=== PATIENT | male | born 1935 | race Caucasian/White ===

== ENCOUNTER 2018-04-02 00:56 | Inpatient (IN) | payer MEDICARE ==
[~2018-04-02] VITALS: Ht 177.8 cm; Wt 84.8 kg
[2018-04-02] MEDS ORDERED: PARO20TA4 PO (01:39)
[2018-04-02 01:45] VITALS: BP 128/79
--- NOTE | 2018-04-02 01:45 | NUR ---
ADMIT Patient arrived per wheelchair with 3 Family members and [place] [employer] officer Tania . Pt involuntary and has commital papers.Patient alert and talking with family and staff members. Patients memory recall poor and has repeated himself numerous times. Patient happy until family left and he became upset and was exit seeking and wandering room to room and to doors trying to get out. Security notified and here to observe patient . Patient asking numerous times to go outside and sit on porch and to call cab to get home. Numerous explanations to patient from staff members but is not remembered by patient. To observe closely for patient.
[2018-04-02] MEDS ORDERED: ATIVAN IM PRN (06:30)
[2018-04-02] MEDS ORDERED: HALDOL PO PRN (06:30)
[2018-04-02] MEDS ORDERED: ATIVAN PO PRN (06:30)
[2018-04-02] MEDS ORDERED: HALDOL IM PRN (06:30)
[2018-04-02 07:50] VITALS: BP 144/80
[2018-04-02] MEDS: PAXIL PO SCH (10:31)
[2018-04-02] MEDS: RISPERDAL PO SCH ×2 (10:31→21:15)
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
--- NOTE | 2018-04-02 15:11 | NUR ---
GMAS SCORE 0/30: PT REFUSES TO PARTICIPATE AT THIS TIME. PT WILL NOT SIT DOWN, AND IS FIXATED ON CALLING HIS FAMILY AND GOING HOME. SS WILL REATTEMPT LATER IF PT BECOMES MORE ALERT AND IS ABLE TO PARTICIPATE. Addendum: 04/02/18 at 1641 by Gretta RODRIGUES Amended: Links added.
--- NOTE | 2018-04-02 16:06 | NUR ---
MMSE SCORE 0: PT UNABLE TO ANSWER ANY QUESTIONS THIS WORKER HAD. PT REFUSED TO SIT DOWN LONG ENOUGH TO ANSWER ANY QUESTIONS THIS WORKER HAD. PT REMAINS FIXATED ON LEAVING/CALLING HIS AT THIS TIME. Addendum: 04/02/18 at 1708 by Gretta RODRIGUES Amended: Links added.
--- NOTE | 2018-04-02 16:45 | NUR ---
SYMPTOMATOLOGY: PT WAS BROUGHT IN TO THE [facility]. PT WAS LIVING HOME WITH HIS AND WAS SIGNED UP WITH [facility]. [facility]ALLE[facility] STATED "WE ADMITTED HIM ON MARCH 18, 2018 AND I WAS THE NURSE WHO ADMITTED HIM AND I WAS AT HIS HOUSE AN HOUR/HOUR AND HALF AND HE HAD NO BEHAVIORS. THIS HAS JUST GOTTEN PROGRESSIVELY WORSE THE LAST WEEK". PT HAS HAD A CHANGE IN HIS MENTAL STATUS, HAS BECOME VIOLENT, IRRITABLE, PHYSICALLY AGGRESSIVE TOWARDS HIS . PT WAS MAKING SUICIDAL STATEMENTS SUCH HE WAS GOING TO HANG HIMSELF OR TAKE A 22 TO HIS HEAD. DUE TO PT BEING A DANGER TO HIMSELF AND OTHERS PT WAS BROUGHT HER BY FAMILY AND [facility] FOR FURTHER EVALUATION AND TREATMENT. SS WILL FOLLOW AND ASSIST WITH DISCHARGE PLANNING. Addendum: 04/02/18 at 1707 by Gretta RODRIGUES Amended: Links added.
--- NOTE | 2018-04-02 17:41 | NUR ---
PIRP P: Altered thought process, alteration in mood I: q15 min monitoring, monitor for changes in usual behavior, give clear and simple instructions, redirect with verbalization, assess for hallucinations and delusions, assist with differentiating between internal and external reality, teach relaxation techniques, provide task-oriented activities, provide 1:1 to encourage expression of feelings, teach medication regimen, give medications as ordered, provide safe and supportive environment R: Pt has had labile affect throughout shift, pleasant majority of time. Has been able to be redirected with verbalization. Makes threats to leave facility @ times, states, "They can shoot me or kill me, but I'm leaving today. If I get too emotional, I will hurt someone." When asked why he was in facility, pt stated, "I'm here because of stupidity. I went to the doctor in [place] and told ehr I was having trouble using the bathroom. It wasn't that, it was the peaches I ate." Alert and oriented to self, sometimes to town. Able to follow simple directions, has taken medications as ordered. Is exit-seeking @ times, but is able to redirect. Wanders up and down aguilar, has participated in some group activities with prompting and direction. Denies having had hallucinations, but has pulled staff aside to look @ ceiling because of "water falling from ceiling," that was not there. Exhibits varying delusions, has been able to redirect. Has had poor appetite and has not slept since admit in early A.M. P: Pt was started on Risperdal, Trazodone, and continued on Paxil, see EMAR.
[2018-04-02 19:56] VITALS: BP 128/82
--- NOTE | 2018-04-02 20:45 | NUR ---
HYGIENE PT. WAS ENCOURAGED TO TAKE A SHOWER BUT HE REFUSED.
[2018-04-02] MEDS: DESYREL PO SCH (21:15)
[2018-04-02 22:16] VITALS: BP 120/80
--- NOTE | 2018-04-03 05:09 | NUR ---
PIRP- P- ALTERED THOUGHT PROCESS AND ALTERATION IN MOOD I-PROVIDE SAFE AND SUPPORTIVE ENVIRONMENT,Q 15 MIN. MONITORING,PROVIDE MEDICATION ORDERED AND PROVIDE 1:1 INTERVENTION ALLOWING PT. TO VOICE THOUGHTS AND FEELINGS R- PT. WAS ORIENTED TO NAME NOT MONTH OR YEAR. DENIES DEPRESSION ,RATED ANXIETY 5 AND STATES WHEN ASKED THAT HE WOULD NOT KILL HIMSELF THAT HE WAS JUST TALKING BUT DID NOT MEAN HE WOULD KILL HIMSELF. PT. STATED THERE WAS WATER COMING OUT OF THE CEILING. ATTEMPTED TO GO BEHIND NURSES DESK BUT WAS EASILY REDIRECTED. TOOK MEDICATION ORDERED. 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 PT. WALKED AROUND IN UNIT TRYING TO GET THE DOORS OPEN SAYING HE HAD A TRUCK OUTSIDE AND HE NEEDED TO GO HOME. PT. HAS RESTED IN BED WITH EYES CLOSED FOR 7 1/2 HOURS OF THIS TIME TONIGHT. P- CONTINUE WITH CURRENT TX. PLAN.
[2018-04-03 07:30] VITALS: BP 113/66
[2018-04-03] MEDS: RISPERDAL PO SCH ×2 (08:56→19:52)
[2018-04-03] MEDS: PAXIL PO SCH (08:56)
--- NOTE | 2018-04-03 09:01 | NUR ---
Admit note: In addition to admit note on 04/02/18. Patient's family would like patient to be discharge back home but if unable to be managed at home group home placement. Dx: Delusional Disorder, Suicidal Ideation.
--- NOTE | 2018-04-03 10:57 | NUR ---
PRN: PT. IS VERY ANXIOUS. PT. IS WANDERING THE AMADOR GOING INTO OTHER PT. ROOMS. PT. IS WANTING TO GO HOME. PT. GETS FRUSTRATED WHEN HE TALKS TO NURSE. PT. THINKS HE HAS A CAR IN THE PARKING LOT AND THAT HE NEEDS TO LEAVE TO GO TO WORK. PT.IS UNABLE TO BE REDIRECTED AT THIS TIME. PRN: ATIVAN 0.5MG PO GIVEN TO PT..
--- NOTE | 2018-04-03 12:10 | NUR ---
F/U PRN: PT. HAS BEEN LAYING IN BED WITH EYES CLOSED. PT. STATES THAT HE IS NOT HUNGRY. TOLD PT. WE WERE HAVING CHICKEN AND HE SAID OK. I TOLD HIM TO COME TO DAY ROOM AND HE SAID OK. PT. IS UP TO BR. PT..IS CALM AT THIS TIME.
--- NOTE | 2018-04-03 17:07 | NUR ---
PIRP: P: ALTERED THOUGHT PROCESS, DEMENTIA WITH BEHAVIOR PROBLEMS, DTS, DTO I: Provide medications as ordered by physician. Encourage attendance and participation of all groups. Provide groups that require focus and concentration. Monitor patients behavior for changes that may put self and others at risk of injury. Redirect patients as needed. Give simple one step commands. R: Patient has taken all medications as ordered . He has wandered and has been restless. He forgets what room is his and wanders in to others rooms. He has required a PRN Ativan this shift for restless behavior and mild agitation about wanting to call his . He has poor memory. He has NOT been combative towards staff or other patients this shift. He has not participated in groups today. He has been pleasant. He has not been exit seeking. P: Continue current plan of care.
--- NOTE | 2018-04-03 18:23 | CNH ---
DATE OF CONSULTATION: 04/02/2018 REFERRING PHYSICIAN: Dr. Pappas with Psychiatry. REASON FOR CONSULTATION: Medical management of multiple medical problems. HISTORY OF PRESENT ILLNESS: The patient is an 82-year-old man with a past medical history significant for coronary artery disease, dementia, chronic back pain, who presented to the Geropsych unit directly from [facility] with the report of aggressive and combative behavior. He is cooperative with exam ambulatory. He denies any pain or nausea. There is no other acute changes reported. PAST MEDICAL HISTORY: Includes coronary artery disease, probable dementia. PAST SURGICAL HISTORY: He has had left hip surgery. Two knee surgeries. PTCA with stents placed. ALLERGIES: Allergic to TETANUS TOXOID. HOME MEDICATIONS: List includes only Paxil 20 mg daily. SOCIAL HISTORY: Lives at home. Denies any alcohol, tobacco or illicit drug use history. FAMILY HISTORY: Negative for early coronary artery disease or diabetes. REVIEW OF SYSTEMS: CARDIAC: Denies chest pain, shortness of breath or dyspnea on exertion. PULMONARY: No cough, sputum production or pleuritic chest pain. GASTROINTESTINAL: No nausea, vomiting, diarrhea or constipation. All else negative in 10-point review of system except as in HPI. PHYSICAL EXAMINATION: VITAL SIGNS: Upon arrival to the unit, height 177.8 cm, weight 84.8 kilograms. Temperature is 97.6, pulse 77, respiratory rate 18, blood pressure 144/80, O2 saturation 92% on room air. GENERAL: He is alert, in no acute distress at time of exam. HEENT: Pupils equal, round, reactive to light. Sclerae are anicteric. Oropharynx is clear. Mucous membranes are moist. NECK: Supple. No lymphadenopathy. CARDIOVASCULAR: At time of exam was regular rate and rhythm. LUNGS: Clear bilaterally. No wheezing. ABDOMEN: Soft. Bowel sounds are present, nontender to palpation. EXTREMITIES: No cyanosis, clubbing or edema. NEUROLOGIC: Grossly nonfocal. LABORATORY DATA: Sodium 142, potassium 4.2, chloride 103, CO2 is 21, BUN 14, creatinine 0.9, glucose 146, calcium was 10.3, AST 25, ALT is less than 20, alkaline phosphatase 103, total bilirubin 0.7, total protein 7.1, albumin is 4.4. TSH 0.907. B12 of 507. UA, pH is 5.5, specific gravity is greater than 1.03. All else is essentially negative. Urine drug screen is positive only for benzodiazepines. Troponin I is less than 0.12. ProBNP is 43.8. Hemoglobin A1c is 5.5. CBC: White count 6.4, hemoglobin 14.6, platelets 178. IMAGING STUDIES: He has CT of the head performed at outside house with no acute findings. ASSESSMENT AND PLAN: The patient is an 82-year-old gentleman with history of coronary artery disease, probable dementia with aggressive behavior. 1. He is currently not on any cardiovascular medications. We will follow clinically. 2. Appropriate p.r.n. pain and nausea medication. 3. Encourage ambulation. 4. We will follow up with lipid panel, but he is not on any medications except for Paxil. We will follow clinically. Time spent on consult history and physical on 04/02/2018 is 45 minutes. Nadir Yeh MD DR: MARIS/teresa JOB# [id number] KEISHA
[2018-04-03] MEDS: DESYREL PO SCH (19:52)
[2018-04-03 20:00] VITALS: BP 130/68
--- NOTE | 2018-04-04 05:06 | NUR ---
pirp- P-ALTERED THOUGHT PROCESS, DTO AND DTS I- PROVIDE MEDICATION ORDERED,Q 15 MIN. MONITORING,PROVIDE SAFE AND SUPPORTIVE ENVIRONMENT R- PT. WAS ORIENTED TO NAME NOT MONTH OR YEAR. DENIED DEPRESSION AND ANXIETY. DECLINED TO ATTEND GROUP OR EAT A SNACK AND STAYED IN BED. QUIET. HAS NOT EXHIBITED DTO OR DTS THIS SHIFT. PLEASANT AFFECT. TOOK MEDICATION ORDERED. HAS RESTED IN BED WITH EYES CLOSED FOR 7 HOURS OF THIS TIME. P- WILL CONTINUE WITH CURRENT TX. PLAN.
[2018-04-04 07:30] VITALS: BP 119/73
[2018-04-04] MEDS: RISPERDAL PO SCH ×2 (09:00→20:42)
[2018-04-04] MEDS: PAXIL PO SCH (09:00)
--- NOTE | 2018-04-04 09:48 | PRM.PN ---
Mood: UP AND DOWN, PROBLEMS WITH ANGER AND IRRITABILITY Sleep: SLEEPING WELL AT NIGHT Appetite: NORMAL APPETITE Suidical thoughts: NONE REPORTED Homicidal thoughts: NONE REPORTED Recent stressors: STRESS OF MENTAL ILLNESS, STRESS OF POOR MEMORY Family support: YES Aggressive Behavior: RECENT AGGRESSIVE BEHAVIOR, PACES THE HALLWAYS Ability to Perform ADL'sc: NEEDS ASSISTANCE Psychotic sympstoms: DELUSIONAL THINKING RELATED TO DEMENTIA, NO HALLUCINATIONS Manic Symptoms: NONE REPORTED Living situation: WAS LIVING AT HOME WITH HIS Illicit Drug usec: NONE REPORTED Alcoholo use: NONE REPORTED Tobacco use: NONE REPORTED Anxity Symptoms: MODERATE TO HIGH ANXIETY LEVEL Anger/Irritablility: PROBLEMS WITH ANGER AND IRRITABILITY Muscle Strength & Tone: WNL Gait & Station: WN Appearance: Well groomed/hygience, Casual attire, Normal weight, Appears age stated Attitude & Behaviour: Uncooperative, Poor eye contact, Hostile, Psychomotor agitation Mood & Affect: Euthymic/appr/congruent, Iabile, Angry, Depressed Orientation: Disoriented to place, Disoriented to time, Disoriented to situation Attention/Concentration: Poor attention, Poor concentration Speech: Pressured, Impaired Judgement/Insight: Poor judgement, Poor insight Thought Process: Loose, Tangential, Circumferential Language: Occitan Thought content/Abnormal/Psych: Delusions Fund of Knowledge: Other Associations: ANDRIY Memory (recent and remote): Recent memory repaired, Remote memory repaired Constitutional: None Neurological: None Psychiatric: Depressed, Anxious, Psychosis [place] I: DELUSIONAL DISORDER; GENERALIZED ANXIETY, DEPRESSION, DEMENTIA [place] II: DEFERRED [place] III: REFER TO PMH/MEDICAL CHART [place] IV: STRESS OF MENTAL ILLNES, STRESS OF POOR MEMORY [place] V: GAF=25 Assessment/Plan Assessment/Plan Assessment/Plan Vital Signs Date Time Temp Pulse Resp B/P (MAP) Pulse Ox O2 Delivery O2 Flow Rate FiO2 04/04/18 07:30 98.6 83 18 119/73 (88) 97 Room Air Allergies Coded Allergies Tetanus Vaccines and Toxoid (Verified Allergy, Unknown, 04/02/18) I & O 04/02/18 02:05 Thru 04/04/18 05:13 Intake Total 2067 ml Balance 2067 ml THE PATIENT WAS SEEN BY DR. BANG VIA TELEMEDICINE EQUIPMENT (VSEE) ALONG WITH THE TREATMENT TEAM. THE PATIENT SLEPT 8 HOURS LAST NIGHT. THE PATIENT REQUIRED PRN ATIVAN YESTERDAY DUE TO ANXIETY, AGGRESSIVE BEHAVIOR, AND IRRITABILITY. THE PATIENT HAS BEEN TAKING HIS MEDICATIONS. THE PATIENT HAS A NORMAL APPETITE. THE PATIENT STRUGGLES WITH CONFUSION. THE PATIENT NEEDS HELP WITH HIS ADLS. THE PATIENT IS NOT HAVING AUDITORY OR VISUAL HALLUCINATIONS. THE PATIENT IS NOT HAVING YOLANDE. THE PATIENT HAS A MODERATE TO HIGH ANXIETY LEVEL. THE PATIENT HAS LOOSE ASSOCIATIONS. ASSESSMENT: DELUSIONAL DISORDER; MAJOR DEPRESSIVE DISORDER; GENERALIZED ANXIETY ; DEMENTIA WITH BEHAVIOR PROBLEMS PLAN: 1) CONTINUE BEHAVIORAL HEALTH MANAGEMENT AT [facility]. 2) INCREASE RISPERDAL TO 0.5MG PO BID. CONTINUE OTHER MEDICATIONS AT CURRENT DOSES. STAFF AGREEABLE WITH THE PLAN. THE PATIENT IS NOT OVER-SEDATED FROM HIS MEDICATIONS. SUPPORTIVE THERAPY GIVEN. THE PATIENT DENIES SI OR HI. SAFETY PLANS WERE DISCUSSED. Problems: (1) Delusional disorder Status: Acute ICD Code: F22 - Delusional disorders SNOMED: [id number] Patient History: Diabetes mellitus V19 CHILD FH: brain tumor G8 SISTER FH: colon cancer 32 MOTHER 33 FATHER FH: malignant neoplasm of kidney G8 BROTHER RACHANA BANG IV, MD Apr 04, 2018 09:48
--- NOTE | 2018-04-04 16:51 | NUR ---
PIRP: P: ALTERED THOUGHT PROCESS, DEMENTIA I: Provide medications as ordered by physician. Encourage attendance and participation of all groups. Provide groups that require focus and concentration. Assist patient in differentiating between internal and external reality. R: Patient has taken all medications and has been wandering hallway wandering in and out of others rooms. He is confused and disoriented. he has not been combative or aggressive this shift. He continues to think that things have been stolen from him. He is eating and drinking well. He has been cooperative but continues to state "I am going home tomorrow". P: Continue current plan of care.
[2018-04-04 19:30] VITALS: BP 123/53
[2018-04-04] MEDS: DESYREL PO SCH (20:42)
--- NOTE | 2018-04-05 04:50 | NUR ---
pirp P- DTO,DTS AND ALTERED THOUGHT PROCESS I- PROVIDE MEDICATION ORDERED,PROVIDE SAFE AND SUPPORTIVE ENVIRONMENT,Q 15 MIN. MONITORING R- PT. WAS ORIENTED TO NAME,DENIES DEPRESSION AND ANXIETY. ATTENDED GROUP ,ATE SNACKS AND WANDERED IN DAY ROOM, LOOKING OUT THE WINDOW SAYING THAT PIPE OUT THERE ON THE ROOF IS THE ONE HE JUST HAD THE DEFENSE ATTORNEY LAY. HE MADE STATEMENTS IF HE WAS STILL WORKING. TOOK MEDICATION ORDERED. WANDERED IN THE HALLWAY AT TIME AND ATTEMPTED TO GO INTO PEERS' ROOMS . PT. GOT UP DURING THE NIGHT,DRESSED AND STATED HE WAS GOING HOME. DID NOT EXHIBIT AGGRESSION OR DTS. HAS RESTED IN BED WITH EYES CLOSED FOR 5.50 HOURS OF THIS TIME. P- WILL CONTINUE WITH CURRENT TX. PLAN.
[2018-04-05 08:09] VITALS: BP 124/54
[2018-04-05 08:43] VITALS: BP 124/54
[2018-04-05] MEDS: RISPERDAL PO SCH ×2 (08:54→20:07)
[2018-04-05] MEDS: PAXIL PO SCH (08:55)
--- NOTE | 2018-04-05 17:18 | NUR ---
PIRP: P: ALTERED THOUGHT PROCESS I: Provide medications as ordered by physician. Encourage attendance and participation of all groups. Provide groups that require focus and concentration. Assist patient in differentiating between internal and external reality. Monitor patients behavior for changes that may indicate risk of injury to others. R: Patient has taken all medications and has participated in groups. He wanders and has gone into other peoples rooms forgetting where his room is. He has been exit seeking "asking for ways to get off unit" but has been easily redirected. He has not been combative or aggressive. C: Continue current plan of care.
[2018-04-05 19:29] VITALS: BP 127/66
[2018-04-05] MEDS: DESYREL PO SCH (20:07)
--- NOTE | 2018-04-06 03:11 | NUR ---
PIRP- P- ALTERED THOUGHT PROCESS I-PROVIDE SAFE AND SUPPORTIVE ENVIRONMENT,Q 15 MIN. MONITORING,PROVIDE MEDICATION ORDERED. R- PT.TOOK MEDICATION ORDERED,ORIENTED TO NAME AND STATED HE WAS NOT SAD,DEPRESSED OR ANXIOUS BUT PT. WAS WANDERING IN HALLWAY AND DAY ROOM TRYING TO OPEN THE DOORS SAYING HE NEEDS TO GO HOME. EASILY REDIRECTED. PLEASANT AFFECT. PT. ATE SNACKS AND PARTICIPATED IN EXERCISES. HAS NOT BEEN AGGRESSIVE THIS SHIFT. IS RESTING IN BED WITH EYES CLOSED AT THIS TIME. P- WILL CONTINUE WITH CURRENT TX. PLAN.
--- NOTE | 2018-04-06 05:38 | NUR ---
behaviors Pt. was exhibited delusional thinking while sitting in day room.
[2018-04-06 07:20] VITALS: BP 101/66
[2018-04-06] MEDS: PAXIL PO SCH (09:02)
[2018-04-06] MEDS: RISPERDAL PO SCH ×2 (09:02→20:25)
--- NOTE | 2018-04-06 13:31 | NUR ---
VSEE Pt was seen by Dr. Pappas via telemed, received orders to increase scheduled Trazodone.
--- NOTE | 2018-04-06 13:33 | PRM.PN ---
Mood: UP AND DOWN, VERY CONFUSED Sleep: SLEEPING POORLY AT NIGHT Appetite: NORMAL APPETITE Suidical thoughts: NONE REPORTED Homicidal thoughts: NONE REPORTED Recent stressors: STRESS OF MENTAL ILLNESS, SEVERE CONFUSION Family support: AND FAMILY Aggressive Behavior: NONE REPORTED OVER THE PAST THREE DAYS, AGGRESSIVE AT HOME TO Ability to Perform ADL'sc: NEEDS PROMPTING AND ASSISTANCE Psychotic sympstoms: DELUSIONAL THINKING RELATED TO DEMENTIA Manic Symptoms: NONE REPORTED Living situation: WAS LIVING AT HOME, NEEDS ASSISTED CARE Illicit Drug usec: NONE REPORTED Alcoholo use: NONE REPORTED Tobacco use: NONE REPORTED Anxity Symptoms: MODERATE ANXIETY LEVEL Anger/Irritablility: SOME ANGER AND IRRITABILITY Muscle Strength & Tone: WNL Gait & Station: Ataxic Appearance: Well groomed/hygience, Casual attire, Normal weight, Appears age stated Attitude & Behaviour: Cooperative/Pleasant, Good eye contact Mood & Affect: Euthymic/appr/congruent, Iabile Orientation: Disoriented to place, Disoriented to time, Disoriented to situation Attention/Concentration: Poor attention, Poor concentration Speech: Reg rate/vol/rhyth/prosod Judgement/Insight: Poor judgement, Poor insight Thought Process: Loose, Tangential, Circumferential Language: Faroese Thought content/Abnormal/Psych: Delusions Fund of Knowledge: Other Associations: ANDRIY Memory (recent and remote): Recent memory repaired, Remote memory repaired Constitutional: Insomnia Neurological: None Psychiatric: Depressed, Anxious, Psychosis [place] I: DELUSIONAL DISORDER; DEPRESSION; ANXIETY; DEMENTIA WITH BEHAVIORS [place] II: DEFERRED [place] III: REFER TO PMH/MEDICAL CHART [place] IV: STRESS OF MENTLA ILLNESS [place] V: GAF=25 Assessment/Plan Assessment/Plan Assessment/Plan Vital Signs Date Time Temp Pulse Resp B/P (MAP) Pulse Ox O2 Delivery O2 Flow Rate FiO2 04/06/18 07:20 98.1 77 18 101/66 (78 95 Room Air Allergies Coded Allergies Tetanus Vaccines and Toxoid (Verified Allergy, Unknown, 04/02/18) I & O 04/02/18 02:05 Thru 04/06/18 11:35 Intake Total 5254 ml Balance 5254 ml THE PATIENT WAS SEEN BY DR. BANG VIA TELEMEDICINE EQUIPMENT (VSEE) ALONG WITH THE TREATMENT TEAM. THE PATIENT REQUIRES CONSTANT REDIRECTION. THE PATIENT IS ORIENTED TO PERSON ONLY. THE PATIENT SLEPT 3.25 HOURS LAST NIGHT. THE PATIENT SLEPT 6.25 HOURS THE NIGHT BEFORE. THE PATIENT HAS A NORMAL APPETITE. THE PATIENT HAS BEEN DRINKING FLUIDS. HE HAS NOT HAD A PRN IN THE PAST THREE DAYS. THE PATIENT HAS DELUSIONAL THINKING. THE PATIENT IS NOT HAVING HALLUCINATIONS. THE PATIENT HAS SOME EXIT SEEKING BEHAVIOR. THE PATIENT HAS NOT SHOWN AGGRESSIVE BEHAVIOR IN THE PAST THREE DAYS. THE PATIENT'S FAMILY PARTICIPATED IN TREATMENT TEAM TODAY. THE PATIENT HAS A STABLE ANXIETY LEVEL. THE PATIENT IS NOT HAVING MANIC OR HYPOMANIC SYMPTOMS. THE PATIENT IS NOT HAVING SUICIDAL OR HOMICIDAL IDEATION. THE PATIENT HAS A DISORGANIZED THOUGHT PROCESS. THE PATIENT WORKED A [employer]ARD[employer] IN THE PAST. ASSESSMENT: DELUSIONAL DISORDER; GENERALIZED ANXIETY DISORDER; DEMENTIA WITH BEHAVIOR PROBLEMS; MAJOR DEPRESSIVE DISORDER PLAN: 1) CONTINUE BEHAVIORAL HEALTH MANAGEMENT AT [facility]. 2) INCREASE TRAZODONE TO 100MG PO QHS. CONTINUE OTHER MEDICATIONS AT CURRENT DOSES. THE STAFF WERE AGREEABLE WITH THE PLAN. 16 MINUTES SPENT IN SUPPORTIVE THERAPY AND INSIGHT ORIENTED THERAPY. FAMILY COUNSELING DONE WELL. Problems: (1) Delusional disorder Status: Acute ICD Code: F22 - Delusional disorders SNOMED: [id number] Patient History: Diabetes mellitus V19 CHILD FH: brain tumor G8 SISTER FH: colon cancer 32 MOTHER 33 FATHER FH: malignant neoplasm of kidney G8 BROTHER RACHANA BANG IV, MD Apr 06, 2018 13:33
--- NOTE | 2018-04-06 16:30 | NUR ---
PIRP P: Altered thought process I: q15 min monitoring, redirect with verbalization, give clear and simple instructions, provide task-oriented activities, provide 1:1 to encourage expression of feelings, give medications as ordered, provide education regarding involuntary admission, teach coping skills r/t confusion and delusional thoughts R: Pt has had pleasant affect throughout shift. Is exit-seeking @ times, wanders aguilar, but is able to be redirected with verbalization. Has not exhibited threatening or combative behaviors throughout shift. Denies feelings of depression or anxiety. Exhibits varying delusions, such as his pickup being outside, or him needing to go to take his pickup back to [place]. Has not required any PRN medications this shift, has been cooperative with ADLs. Participates in group activities with prompting. P: Pt's Trazodone was increased.
[2018-04-06 19:00] VITALS: BP 134/73
[2018-04-06] MEDS: DESYREL PO SCH (20:25)
--- NOTE | 2018-04-07 05:00 | NUR ---
PIRP P Dementia with behaviors. DTS. DTO. Risk for falls I Encourage patient to sleep 8 ours nightly. Medication compliance to be maintained. Allow patient to verbalize thought and feelings. Patient to be monitored every 15 minutes for safety. Patient not to exhibit self harm behaviors. R Patient has slept 6.25 hours so far this evening. Patient has been medication compliant. Patient does not want to talk about anything but getting out of here and where is his . Patient has not displayed any self harming behaviors. P Continue plan of care.
[2018-04-07 07:40] VITALS: BP 139/59
[2018-04-07] MEDS: PAXIL PO SCH (08:56)
[2018-04-07] MEDS: RISPERDAL PO SCH ×2 (08:57→20:44)
--- NOTE | 2018-04-07 17:18 | NUR ---
PIRP P: Altered thought process I: Monitor for changes in usual behavior, q15 min monitoring, assess for hallucinations and delusions, assist with differentiating between internal and external reality, give medications as ordered, encourage participation in own self-care R: Pt has had pleasant, cooperative affect throughout shift. Denies depression, anxiety, SI/HI. Has not been exit-seeking or exhibited threatening or combative behaviors. Has isolated to room, but will come out for meals and ADLs. Has taken medications as ordered. P: Pt unable to verbalize plan, plans for [facility] to [facility] once placement is found.
[2018-04-07 19:30] VITALS: BP 113/62
[2018-04-07] MEDS: DESYREL PO SCH (20:45)
--- NOTE | 2018-04-08 04:23 | NUR ---
PIRP p Dementia with behaviors. DTS ,DTO, Risk for falls I Observe for exit seeking and assaultive behavior. Observe for self harming behavior. Encourage patient to attend groups and interact with peers. Monitor every 15 minutes for safety. Observe for unusual behavior. Discourage acting out if observed. Observe proper use of fall prevention. R Patient has not been exit seeking this evening or early am at all. Patient came in hallway once and then walked back into his room. Did not attempt to pull or push on doors or windows as he has in previous days. Patient has not displayed any self harming behaviors or behaviors to harm anyone else. Patient did not come to have a snack last pm, he wanted to sleep at the time. Patient has been monitored every 15 minutes for safety and has not displayed any unusual behaviors or acting out either.Patient has worn non skid footwear when up and out of bed. P continue plan of care.
[2018-04-08 07:44] VITALS: BP 124/65
--- NOTE | 2018-04-08 09:04 | NUR ---
BM Last known and documented BM was for 04/03/18. BS x 4, abd nontender to palpation, has been passing gas.
[2018-04-08] MEDS: PAXIL PO SCH (10:27)
[2018-04-08] MEDS: RISPERDAL PO SCH ×2 (10:27→20:43)
--- NOTE | 2018-04-08 15:26 | NUR ---
PIRP P: Altered thought process I: Monitor for changes in usual behavior, q15 min monitoring, assess for hallucinations and delusions, assist with differentiating between internal and external reality, give clear and simple instructions, redirect with verbalization, reinforce unit rules, give medications as ordered, alternate rest/activity R: Pt has had pleasant, cooperative affect throughout shift. Denies depression, anxiety, SI/HI. No hallucinations or delusions noted. Has not been exit-seeking this shift, has not exhibited threatening or combative behaviors. Participates in group activities with prompting, is pleasant when approached. Has unsteady gait @ times, ambulates with use of rolling walker. Takes medications as ordered. P: Pt reports he wants to go home, and understand that he isn't able to "right now."
--- NOTE | 2018-04-08 16:33 | NUR ---
DISCHARGE PLANNING: PT'S SON TOMMIE WHO IS POA CALLED AND AFTER VISITING WITH HIS FAMILY THEY WOULD LIKE TO TRY [facility] SINCE IT IS CLOSE TO WHERE THEY LIVE. SS REACHED OUT TO [facility] BUT THE DON WAS NOT IN AT THE MOMENT. SS WILL RE-ATTEMPT TO GET A HOLD OF [facility] REGARDING PLACEMENT.
[2018-04-08 20:00] VITALS: BP 120/60
[2018-04-08] MEDS: DESYREL PO SCH (20:43)
--- NOTE | 2018-04-09 05:20 | NUR ---
PIRP P Dementia with behaviors. I Encourage 8 hours of sleep nightly. Discourage threatening assaultive behavior Monitor every 15 minutes for safety. Discourage self harming behaviors if seen. Observe fall precautions. R Patient has only slept 1.75 hours. Patient has resting in bed but did not sleep much. Patient was found laying on floor and he reports he got down there to fix the bed. Patient assisted up into chair by nursing staff and patient reports he is going to get right back down there to fix the bed. Attempted to tell patient we would get maintenence to fix bed , to alleviate patient thinking he needed to fix it. Patient then said he had to use bathroom for use girls to leave the room so he could go to the bathroom. Patient rechecked and is sitting on bed in his room. Patient has not displayed any threatening behavior or self harming behavior. Patient has non skid shoes that he wears. Patient denies falling . No injuries seen. P Continue plan of care.
[2018-04-09 08:15] VITALS: BP 140/65
[2018-04-09] MEDS: PAXIL PO SCH (08:33)
[2018-04-09] MEDS: RISPERDAL PO SCH ×2 (08:33→20:22)
--- NOTE | 2018-04-09 14:51 | NUR ---
PIRP: P: DEMINTIA WITH BAVORIAL DISTURBANCE, DTS I: MONITOR PT. Q 15 MINUTES, PROVIDE SAFE AND SUPPORTIVE ENVIRONMENT, GIVE MEDICATIONS ORDERED BY PHYSICIAN,ENCOURAGE DAILY GROUPS ATTENDANCE AND PARTICIPATION. OBSERVE AND REPORT CHANGES IN UNUSUAL BEHAVIORAL R: PT. MONITORED Q 15 MINUTES, SAFE AND SUPPORTIVE ENVIRONMENT PROVIDED FOR PT., PT. TAKES ALL MEDICATIONS ORDERED. PT. ATTENDS AND PARTICIPATES IN GROUPS. PT. HAS HAD NO SUICIDAL IDEATION. PT. HAS BEEN CALM AND COOPERATIVE. P: CONTINUE CURRENT CURRENT TX PLAN.
--- NOTE | 2018-04-09 15:50 | NUR ---
STEPHANIEEE: PT. SEEN BY DR. VEGAS VIA KIER[facility]. NO NEW ORDERS Addendum: 04/09/18 at 1952 by Nathalia Albert RN RN DR. VEGAS RECOMMENDED PHYSICAL THERAPY FOR PT.
--- NOTE | 2018-04-09 16:35 | NUR ---
DISCHARGE PLANNING: SS ATTEMPTED TO VISIT WITH DON REGARDING POSSIBLE ADMISSION, BUT SHE WAS NOT IN. SS FAXED OVER CLINICAL FOR HER TO REVIEW ON THURSDAY WHEN SHE GETS IN. SS WILL CONTINUE TO FOLLOW. GOAL IS TO GO TO [facility] IF BED IS AVAILABLE AND FACILITY ACCEPTS.
[2018-04-09 19:15] VITALS: BP 122/60
[2018-04-09] MEDS: DESYREL PO SCH (20:22)
--- NOTE | 2018-04-10 05:56 | NUR ---
PIRP P- DTS AND BEHAVIORS I-PROVIDE MEDICATION ORDERED, Q 15 MIN. MONITORING,PROVIDE SAFE AND SUPPORTIVE ENVIRONMENT. R-PT. ORIENTED TO NAME,DENIED DEPRESSION AND ANXIETY. ATTENDED GROUP,ATE SNACKS AND PARTICIPATED IN GROUP GAME.PT.STATED THERE WAS A CIGARETTE ON THE FLOOR AND INSISTED IT WAS WHEN IT WAS A PAD CONNECTED TO THE CHAIR LEGS. TOOK MEDICATIONS ORDERED. HAS NOT EXHIBITED DTS. PT. HAS RESTED IN BED WITH EYES CLOSED FOR 9.5 HOURS THIS SHIFT. P- WILL CONTINUE WITH CURRENT TX. PLAN.
[2018-04-10 08:00] VITALS: BP 136/64
[2018-04-10] MEDS: PAXIL PO SCH (08:37)
[2018-04-10] MEDS: RISPERDAL PO SCH ×2 (08:37→20:04)
--- NOTE | 2018-04-10 14:56 | NUR ---
PIRP: P: DEMENTIA WITH BEHAVIORAL DISTURBANCE i; MONITOR Q 15 MINUTES FOR SAFETY, PROVIDE MEDICATION ORDERED BY PHYSICIAN, PROVIDE SAFE AND SUPPORTIVE ENVIRONMENT, ENCOURAGE DAILY GROUP ATTENDANCE R: PT. HAS Q 15 MINUTE CHECKS DONE. PT. HAS A SAFE AND SUPPORTIVE ENVIRONMENT, PT. TAKES MEDICATIONS ORDERS.PT. HAS BEEN ATTENDING GROUPS TODAY. PT. HAS BEEN COOPERATIVE. PT. HAS EATEN GOOD TODAY. P: CONTINUE CURRENT TX PLAN.
[2018-04-10 19:59] VITALS: BP 154/54
[2018-04-10] MEDS: DESYREL PO SCH (20:04)
--- NOTE | 2018-04-11 00:37 | PNH ---
DATE: 04/09/2018 PSYCHIATRIC PROGRESS NOTE. TIME: 22:20 HISTORY OF PRESENT ILLNESS: This is an 82-year-old male admitted involuntarily to the Behavioral Health Unit at [place] with severe depression and dementia. The patient was brought to the [facility] the night prior to this admission, very aggressive and combative towards HIS , assaultive, labile, agitated and unpredictable. Not caring for himself or his activities of daily living. Trying to shoot himself with a gun based on depression. Decreased cognition consistent with a dementing illness with behavioral disturbance. Delusional thoughts, feeling people want to hurt him or harm him. The patient remains depressed with delusional thoughts. He is showing some improvement with regard to the depression and psychosis. His cognition remains the same as one would expect with a likely Alzheimer's type dementia. The patient will be going to a long-term and be discharged no longer represents any risk or danger to himself or others. OBJECTIVE: VITAL SIGNS: Blood pressure 140/65, pulse 64, respirations 20, temperature 97.5, oxygen saturation 94%. REVIEW OF SYSTEMS: HEENT: Normal. RESPIRATORY: No shortness of breath, coughing, or wheezing. CARDIAC: No chest pain or palpitations. GASTROINTESTINAL: No nausea, vomiting, diarrhea or constipation. GENITOURINARY: No difficulty with urination. EXTREMITIES: Some difficulty walking. No edema. MUSCULOSKELETAL: No muscle pain. NEUROLOGIC: Normal. ENDOCRINE: Normal. MENTAL STATUS EXAMINATION: Reveals an alert male with decreased psychomotor activity. Concentration and memory decreased. Speech and language are normal. Orientation decreased. Intelligence is average. Mood assessed as depressed. Affect constricted. Insight and judgment are poor. Thought is illogical. DIAGNOSES: AXIS I: 1. Major depressive disorder. 2. Delusional disorder. 3. Dementia with behavioral disturbance. AXIS II: Deferred. AXIS III: Refer to past medical history. TREATMENT PLAN: 1. This patient was admitted involuntarily to the Behavioral Health Care Unit based on a risk to himself and others. 2. He has been participating in groups, therapies and activities. 3. He has been placed on medications, specifically Risperdal 0.5 mg twice a day, Paxil 20 mg a day, trazodone 100 mg at bedtime. 4. The patient will be discharged to a long-term setting when it is felt he no longer represents any risk or danger to himself or others. Isaias Landeros MD DR: IZABELLA/teresa JOB# [id number]
--- NOTE | 2018-04-11 06:07 | NUR ---
PIRP P- BEHAVIORS AND DTS I-PROVIDE SAFE AND SUPPORTIVE ENVIRONMENT,Q 15 MIN. MONITORING,PROVIDE MEDICATION ORDERED. R- PT. WAS ORIENTED TO NAME,DENIED DEPRESSION AND ANXIETY,ATTENDED GROUP AND ATE DINNER MEAL. DID NOT EXHIBIT DTS. TOOK MEDICATION ORDERED. HAS RESTED IN BED WITH EYES CLOSED FOR 7.75 HOURS OF THIS TIME. P- WILL CONTINUE WITH CURRENT TX. PLAN.
[2018-04-11 08:00] VITALS: BP 118/53
[2018-04-11] MEDS: RISPERDAL PO SCH ×2 (08:44→20:23)
[2018-04-11] MEDS: PAXIL PO SCH (08:44)
--- NOTE | 2018-04-11 16:21 | NUR ---
PIRP P: q15 min monitoring, assess for hallucinations and delusions, monitor for changes in usual behavior, assist with differentiating between internal and external reality, give clear and simple instructions, redirect with verbalization, alternate rest/activity, encourage social interaction, give medications as ordered I: Pt has had pleasant, cooperative affect throughout shift. Has not exhibited threatening or combative behaviors. Exhibits varying delusions r/t needing to go home, or leaving facility "tomorrow." Denies depression, anxiety, SI/HI. States, "I'm just sleepy." Initiates interaction with staff and peers. P: Pt will VSEE with Dr. Landeros tomorrow, 04/12/11. Pt reports he is going to "get ready to leave in the morning." Has been able to redirect with verbalization.
[2018-04-11 19:22] VITALS: BP 103/44
[2018-04-11] MEDS: DESYREL PO SCH (20:23)
--- NOTE | 2018-04-12 02:47 | NUR ---
PIRP- P- BEHAVIORS AND DTS I-PROVIDE MEDICATION ORDERED,Q 15 MIN MONITORING,PROVIDE SAFE AND SUPPORTIVE ENVIRONMENT R-PT. ORIENTED TIMES 1 TO SELF. HAS NOT EXHIBITED DTS OR INAPPROPRIATE BEHAVIORS TONIGHT. HAD PLEASANT AFFECT. ATE SNACKS. TOOK MEDICATION ORDERED. IS RESTING IN BED WITH EYES CLOSED AT THIS TIME. P- WILL CONTINUE WITH CURRENT TX. PLAN.
[2018-04-12 08:07] VITALS: BP 119/51
[2018-04-12] MEDS ORDERED: RISPERDAL ONE (10:10)
[2018-04-12] MEDS: RISPERDAL PO SCH ×2 (10:12→20:05)
[2018-04-12] MEDS: PAXIL PO SCH (10:12)
--- NOTE | 2018-04-12 13:36 | NUR ---
[facility] DENIAL: SS CALLED AND SPOKE TO KAMI AT [facility]. KAMI STATED THEY CURRENTLY DO NOT HAVE ANY MALE BEDS AVAILABLE. PT'S DAUGHTER EDEN STATED "WELL I GUESS TRY [place]. WE GO THERE A LOT FOR OTHER THINGS. THAT WOULD WORK THE BEST". SS REACHED OUT TO [facility] AND KAMI STATED THEY NO LONGER HAVE A LOCKED UNIT. SS REACHED OUT AND SPOKE TO ANDREW AT [facility]. ANDREW STATED "WE CAN'T SKILL A PATIENT COMING INTO OUR LOCKED UNIT. THEY WOULD HAVE TO COME MEDICAID PENDING AND ALL THE PAPERS PRIOR TO PT COMING OR THEY EVEN ACCEPTING. PT'S FAMILY WOULD LIKE PT TO GO IN UNDER SKILLED AND USE HIS SKILLED DAYS WHILE THEY WORK ON THE MEDICAID PROCESS. SS REACHED OUT TO [facility] WHOM DECLINED PT. SS REACHED OUT TO THE [facility] WHOM STATED THEY WERE UNABLE TO TAKE PT AT THIS TIME. SS ATTEMPTED TO CALL PT'S SON WHO IS POA BUT HAVE NOT BEEN ABLE TO GET A HOLD OF HIM TO SEE WHICH [facility]PC THEY WOULD LIKE TO TRY NEXT. SS WILL CONTINUE ASSIST WITH DISCHARGE PLANNING.
--- NOTE | 2018-04-12 16:57 | NUR ---
PIRP: P: ALTERED THOUGHT PROCESS I: Provide medications as ordered by physician. Encourage participation of all groups. provide groups that require focus and concentration. Assist patient in differentiating between internal and external reality. R: Patient has been calm and cooperative and pleasant. He has taken all medications. He was seen in treatment team today no changes made. P: COntinue current plan of care.
[2018-04-12 19:43] VITALS: BP 113/59
[2018-04-12] MEDS: DESYREL PO SCH (20:05)
--- NOTE | 2018-04-13 05:17 | NUR ---
PIRP P-ALTERED THOUGHT PROCESS AND DTS I- Q 15 MIN. MONITORING,PROVIDE MEDICATION ORDERED,PROVIDE SAFE AND SUPPORTIVE ENVIRONMENT R- ORIENTED TO NAME NOT MONTH OR YEAR. DENIES DEPRESSION AND ANXIETY. ATTENDED GROUP BUT DIDN'T PARTICIPATE IN EXERCISE. ATE SNACKS. EXHIBITED NO DTS OR DTO. PT. WAS RESTLESS,UNSTEADY AND REQUIRED REDIRECTING. HE STATED HIS WAS WORKING AND HE NEEDS TO GO PICK HER UP. TOOK MEDICATION ORDERED. RESTING IN BED WITH EYES CLOSED AT THIS TIME. P- WILL CONTINUE WITH CURRENT TX. PLAN.
[2018-04-13 07:51] VITALS: BP 111/54
[2018-04-13] MEDS: PAXIL PO SCH (09:18)
[2018-04-13] MEDS: RISPERDAL PO SCH ×2 (09:18→20:18)
--- NOTE | 2018-04-13 14:47 | PNH ---
DATE: 04/12/2018 HISTORY OF PRESENT ILLNESS: The patient is an 82-year-old male involuntarily admitted in Behavioral Health Unit in [facility]. The patient struggles with depression and severe dementia. The patient brought to the [facility] for aggressive, labile, agitated and assaultive behavior. The patient with depressive symptoms, depressed mood, disturbed sleep, appetite, energy and concentration. The patient threatened to shoot himself, talking with his . Very physically aggressive toward his with possible injury. The patient's cognitive decline consistent with a dementing illness. The patient is showing improvement at this point with some decreased depression, decreased delusional thought, decreased agitation and assaultive behavior. We are working on potential discharge for this patient on Thursday to a detention setting. OBJECTIVE: VITAL SIGNS: Blood pressure 119/51, pulse 52, respirations 18, temperature 98.7, oxygen saturation 95%. REVIEW OF SYSTEMS: HEENT: Normal. RESPIRATORY: No shortness of breath, coughing, or wheezing. CARDIAC: No chest pain or palpitations. GASTROINTESTINAL: No nausea, vomiting, diarrhea. EXTREMITIES: No swelling or edema. MUSCULOSKELETAL: No muscle pain. NEUROLOGIC: Normal. ENDOCRINE: Normal. MENTAL STATUS EXAMINATION: Reveals an alert male with decreased psychomotor activity. Concentration and memory decreased. Speech and language are normal. Orientation decreased. Intelligence is average. Mood assessed as depressed. Affect somewhat constricted. Insight and judgment improving with decrease in delusional thought. ASSESSMENT: DIAGNOSES: AXIS I: 1. Major depressive disorder. 2. Delusional disorder. 3. Dementia with behavioral disturbance. AXIS II: Deferred. AXIS III: Refer to past medical history. TREATMENT PLAN: 1. This patient was admitted involuntarily to [facility]. 2. The patient has been placed on medications, specifically trazodone 100 mg at bedtime, Risperdal 0.5 mg twice a day, Paxil 20 mg a day. 3. The patient is participating in groups, therapies and activities. 4. With further improvement, the patient will be discharged to a detention setting. Isaias Landeros MD DR: IZABELLA/teresa JOB# [id number]
--- NOTE | 2018-04-13 15:40 | NUR ---
FALL: HEARD PT. FALL IN ROOM AND WHEN ARRIVED PT WAS LYING ON RIGHT SIDE. PT. WAS ALERT AND TALKING. PT. KNOWS NAME, DATE OF BUT DOES NOT KNOW PLACE OR DATE WHICH IS NORMAL FOR PT. LACERATION NOTED TO BACK OF HEAD MEASURING 2.5 CM X 0.1 CM X<0.1 CM.AND ACTIVELY BLEEDING. SKIN TEAR NOTED TO LEFT INNER ARM MEASURING 1.7 CM X 1 CM X <0.1 CM. 1544- DR AMADOR NOTIFIED OF FALL. VITALS 144/76, HR-74, R-20 O2 SAT 92%. PT. STATES PAIN IS 10/10 ON HEAD. REPORT GIVEN TO DR. AMADOR. ORDER RECEIVED TO PLACE STERI STRIPS TO LACERATION AND SKIN TEAR AND CT OF HEAD WITHOUT CONTRAST. 1550 LACERATION TO HEAD CLEANED WITH WOUND ESCROW AGENT, MASTISOL APPLIED TO HOLD THE STERI STRIPS IN PLACE BY SUSANNA CUNHA LVN. STERI X4 APPLIED. SKIN TEAR TO LEFT ARM CLEANED WITH WOUND ESCROW AGENT, STERI STRIPS APPLIED WITH MASTISOL TO HELP HOLD THEM IN PLACE BY SUSANNA CUNHA LVN. PT. ALERT TO NAME AND ,, PUPILS EQUAL AND REACTIVE TO LIGHT. NO S/S OF DISTRESS NOTED. NURSES REMAIN BY BED SIDE. NURSES PRESENT Jacy ALBERT RN, SUSANNA CUNHA LVN, AND JESSICA ESPINAL CNA [id number] PT. TRANSPORTED OFF UNIT TO [facility] VIA W/C WITH SUSANNA CUNHA LVN. 1700 T/C TO DR. AMADOR TO GIVE REPORT ON CT SCAN. ORDER RECEIVED FOR TYLENOL 1 GM Q [address] AMADOR WILL COME SEE PT. LATER. Addendum: 04/13/18 at 1819 by Nathalia Albert RN RN PT. NOW HAS RED SOCKS ON.
[2018-04-13 15:44] VITALS: BP 144/76
[2018-04-13 16:45] VITALS: BP 131/70
--- NOTE | 2018-04-13 16:51 | DIREP ---
PROCEDURE:CT HEAD WITHOUT CONTRAST TECHNIQUE:Axial cuts were obtained through the head, without intravenous contrast material. The images were viewed at brain and bone settings. COMPARISON:None. INDICATIONS:fall FINDINGS: VENTRICLES:Normal. CEREBRUM:No hemorrhage, infarct or mass lesion. Mildly diminished attenuation in the deep white matter in the parietal lobes consistent with chronic ischemia from small vessel disease. CEREBELLUM:Normal. BRAINSTEM:Normal. SKULL:Normal. No fractures. SINUSES:Normal. OTHER:Negative. CONCLUSION: 1. No acute abnormalities. 2. Chronic ischemic changes from small vessel disease in the deep white matter in the parietal lobes. Dictated by: Nabor Bardales M.D. on 04/13/2018 at 04:46 PM
--- NOTE | 2018-04-13 17:08 | NUR ---
DISCHARGE PLANNING CONTINUED: WHEN PT'S AND DAUGHTER EDEN CAME TO VISIT WITH PT. SS ATTEMPTED TO VISIT WITH THEM REGARDING DISCHARGE PLANNING. PT'S WAS TOO UPSET AND PT'S DAUGHTER JUST WANTED TO VISIT WITH PT AT THIS TIME AND DID NOT WANT TO DISCUSS DISCHARGE PLANNING AT THIS TIME. SS PROVIDED THEM WITH A COMPLETE LOCKED UNIT LIST AND LET THEM KNOW WHICH ONE THIS WORKER HAS TRIED AND PT HAS BEEN DENIED AND WHICH ONES WERE LEFT. SS LET PT'S FAMILY KNOW SHE WOULD NEED TO KNOW BY TOMORROW SO THEY COULD TRY TO SECURE PLACEMENT FOR PT.
[2018-04-13] MEDS ORDERED: TYLENOL PO PRN (18:00)
--- NOTE | 2018-04-13 18:13 | NUR ---
NOTIFICATION: NOTIFIED OUTBOUND SALES CONSULTANT GERDA GARDINER AT APPROXIMATELY 1547. PT. WAS NOTIFIED AT 1650
--- NOTE | 2018-04-13 18:19 | NUR ---
PIRP: P: RISK FOR FALLS, DEMENTIA WITH BEHAVIORAL DISTURBANCE I: MONITOR Q 15 MINUTES FOR SAFETY. NON SKID SOCKS, PROVIDE MEDS ORDERED,PROVIDE SAFE AND SUPPORTIVE ENVIRONMENT, ENCOURAGE DAILY ATTENDANCE OF GROUPS AND PARTICIPATION. R: PT. IS MONITORED Q 15 MINUTES FOR SAFETY, PT. IS NOW WEARING RED SOCKS, MEDS GIVEN ORDERED BY PHYSICIAN, PT. FELL THIS AFTERNOON AND HAS LACERATION TO HEAD AND SKIN TEAR TO LEFT ARM. PT. IS ORIENTED TO NAME AND WHICH IS NORMAL FOR THIS PT. FAMILY IS HERE WITH PT. FOR A VISIT. PT. HAS BEEN CALM AND COOPERATIVE TODAY. P: CONTINUE CURRENT TX. PLAN
[2018-04-13 19:30] VITALS: BP 142/57
[2018-04-13] MEDS: DESYREL PO SCH (20:18)
--- NOTE | 2018-04-14 04:04 | NUR ---
PIRP P Dementia with behaviors, DTS, DTO, Risk for falls I Encourage 8 hours of sleep at night. Discourage assaultive behavior if observed. Monitor patient for safety every 15 minutes. Discourage self harm behaviors if observed. Observe patient closely to prevent falls. R Patient has slept 6.5 hours so far this night. Patient has not displayed any assaultive behavior or self harming behaviors. Patient has been monitored eery 15 minutes for safety and checked on every time bed alarm sounded to prevent patient from getting up alone. P Continue plan of care
[2018-04-14 07:50] VITALS: BP 116/59
--- NOTE | 2018-04-14 08:52 | NUR ---
Tx team Pt was seen by Dr. Landeros and tx team. Received orders to decrease scheduled Risperdal, see EMAR.
--- NOTE | 2018-04-14 09:10 | NUR ---
PLACEMENT: SS REACHED OUT TO PT'S DAUGHTER TO PARTICIPATE IN TREATMENT TEAM. PT'S DAUGHTER WOULD LIKE TO TRY [facility] SINCE THEY ARE CLOSER AND THEY DO NOT FEEL LIKE PT WOULD PHYSICALLY BE ABLE TO ATTEMPT TO LEAVE [facility]. PT'S DAUGHTER'S SECOND CHOICE WOULD BE [facility] SINCE IT IS ONLY [address] MINUTES AWAY. PT'S DAUGHTER STATED SHE HAS BEEN IN CONTACT WITH HER BROTHERS AND THEY WOULD LIKE PT TO BE CLOSER TO THEIR MOM IN [place]. SS REACHED OUT TO BOTH FACILITIES AND FAXED CLINICAL. SS LET [facility] KNOW PT'S FAMILIES FIRST CHOICE WOULD BE [facility]. PT CURRENTLY PENDING ACCEPTANCE INTO [facility] AND [facility].
[2018-04-14] MEDS: RISPERDAL PO SCH ×2 (09:44→20:02)
[2018-04-14] MEDS: PAXIL PO SCH (09:44)
--- NOTE | 2018-04-14 15:06 | NUR ---
[facility]: SS REACHED OUT TO VICK WET ROLLER AT [facility]. VICK STATED "RUDOLPH OUR DON WOULD LIKE TO COME IN PERSON AND ASSESS PT IN THE MORNING. WE KNOW HE HAS HAD SOME EXIT SEEKING BEHAVIORS IN THE PAST AND WE WANTED TO MAKE SURE HE WOULD BE A GOOD FIT FOR OUR FACILITY". PT STILL PENDING ACCEPTANCE AT THIS TIME.
--- NOTE | 2018-04-14 15:20 | NUR ---
BM Pt is poor historian r/t last BM. Last known and documented BM was 04/07/18. Pt abd is distended, nontender to palpation, BS X4 normoactive. Pt has been passing gas, denies discomfort to rectum. Reports he "sometimes" has trouble having a bowel movement.
--- NOTE | 2018-04-14 17:23 | NUR ---
PIRP P: Altered thought process, fall risk I: q15 min monitoring, assess for hallucinations/delusions, assist with differentiating between internal and external reality, give clear and simple instructions, redirect with verbalization, provide task-oriented activities, provide safe and supportive environment, teach fall prevention techniques, provide 1:1 to encourage expression of feelings, encourage use of no-slip socks and walker with ambulation, give medications as ordered R: Pt has had pleasant, cooperative affect throughout shift. Restless @ times, but has been able to be redirected with verbalization. Denies depression, anxiety, SI/HI. Has not exhibited threatening or combative behaviors. Takes medications as ordered, is able to follow simple commands, and is compliant with fall prevention techniques. P: Risperdal decreased, see EMAR.
[2018-04-14 19:40] VITALS: BP 109/49
[2018-04-14] MEDS ORDERED: RISPERDAL ONE (19:59)
[2018-04-14] MEDS: DESYREL PO SCH (20:02)
--- NOTE | 2018-04-15 01:20 | PNH ---
DATE: 04/14/2018 TIME: 8:40-9:00 HISTORY OF PRESENT ILLNESS: The patient is an 82-year-old male admitted involuntarily to the Behavioral Unit at [facility] with severe depression and dementia. The patient brought to the [facility] the night prior to admission with aggression, lability, assaultive behavior toward his , cognitive decline consistent with a dementing illness. The patient reportedly threatened to shoot himself. Depressed mood, disturbed sleep, appetite, energy and concentration. The patient has improved at this point with decreasing depressive symptoms, elimination of any delusional thoughts. Cognitive functioning remains the same as one would expect with an Alzheimer's type dementia. No suicidal thought. This patient is to be discharged likely tomorrow. We are working on disposition and placement at this time. OBJECTIVE: VITAL SIGNS: Temperature 97.8, pulse 57, respirations 16, oxygen saturation 94%, blood pressure 116/59. REVIEW OF SYSTEMS: HEENT: Normal. RESPIRATORY: No shortness of breath, coughing, or wheezing. CARDIAC: No chest pain or palpitations. GASTROINTESTINAL: No nausea, vomiting, diarrhea or constipation. GENITOURINARY: No difficulty with urination. EXTREMITIES: No swelling or edema. Some instability of gait. The patient had a fall yesterday with a laceration to the scalp. Had a CT scan done, which was normal. MUSCULOSKELETAL: No muscle pain. NEUROLOGIC: Normal. ENDOCRINE: Normal. MENTAL STATUS EXAMINATION: Reveals an alert male with decreased psychomotor activity. Concentration and memory decreased. Speech and language are normal. Orientation decreased. Intelligence is average. Mood assessed as depressed. Affect constricted. Insight and judgment are improving with decrease in delusional thought. ASSESSMENT AND PLAN: 1. Delusional disorder. 2. Major depressive disorder. 3. Dementia with behavioral disturbance. AXIS II: Deferred. AXIS III: Refer to past medical history. TREATMENT PLAN: 1. This patient was admitted involuntarily and has been observed closely. 2. He has been placed on medications, specifically Risperdal, decreased today to 0.25 mg twice a day due to instability of his gait or difficulty walking; Paxil 20 mg a day and trazodone 100 mg at bedtime. 3. The patient is participating in group therapies and activities. 4. The patient will be discharged to a fpc setting soon. Isaias Landeros MD DR: IZABELLA/teresa JOB# [id number]
[2018-04-15 08:22] VITALS: BP 108/62
[2018-04-15] MEDS: RISPERDAL PO SCH (08:45)
[2018-04-15] MEDS: PAXIL PO SCH (08:45)
[2018-04-15] MEDS ORDERED: RISP0.2518 PO (11:30)
[2018-04-15] MEDS ORDERED: TRAZ50TA18 PO (11:30)
[2018-04-15 15:36] VITALS: BP 108/62
--- NOTE | 2018-04-15 15:36 | NUR ---
Off unit Discharge education and information provided to Evonne Clark RN. Pt transported off unit via wheelchair down to private van, no distress noted.
--- NOTE | 2018-04-15 16:40 | NUR ---
Report Report given to Michelle Sinha LVN @ [facility].
--- NOTE | 2018-04-16 18:08 | DSH ---
DATE OF DISCHARGE: 04/15/2018 HISTORY OF PRESENT ILLNESS: The patient is an 82-year-old male admitted to the Behavioral Health Unit with severe depression and dementia with behavioral disturbance and delusional disorder. The patient is labile, agitated, combative toward his . Pushing on doors, trying to escape, threatening to shoot himself when talking with his . Physically aggressive towards his . Depressed mood, disturbed sleep, appetite, energy and concentration, feelings of hopelessness. Delusional thought and dementia with decreased cognitive function consistent with an Alzheimer type dementia. HOSPITAL COURSE: The patient did very well during his hospital course. He is placed on medication and did participate fully in groups, therapies and activities. His mood improved, elimination of all vegetative symptoms, no anhedonia. No suicidal or homicidal thoughts. All psychotic symptoms resolved and delusional thought and he was left with cognitive function, stable and again consistent with an Alzheimer type dementia. MEDICATIONS: He was placed on included trazodone 100 mg at bedtime for sleep consolidation and depression, Risperdal 0.25 mg twice a day for some delusional thought and psychosis and Paxil 20 mg a day for depression. ASSESSMENT: AXIS I: 1. Major depressive disorder. 2. Delusional disorder. 3. Dementia with behavioral disturbance. AXIS II: Deferred. AXIS III: Refer to past medical history. TREATMENT PLAN: 1. This patient was admitted involuntarily and observed closely. 2. He is placed on medications as outlined above. 3. He did participate in all groups, therapies and activities. 4. The patient was discharged to a senior care setting representing no risk or danger to himself with no suicidal or homicidal ideation, intent or plan. Prognosis is good. Isaias Landeros MD DR: IZABELLA/teresa JOB# [id number]
== END 2018-04-15 15:36 | DRG 885 ==
LOC: EEVIPCON → GP 01:30
PROVIDERS: ADMIT Psychiatry & Neurology Psychiatry; ATTEND Psychiatry & Neurology Psychiatry
DX: F22 Delusional disorders (principal); F32.2 Major depressive disorder, single episode, severe without psychotic features; F02.81 Dementia in other diseases classified elsewhere, unspecified severity, with behavioral disturbance; G30.9 Alzheimer's disease, unspecified; M54.9 Dorsalgia, unspecified; G89.29 Other chronic pain; I25.10 Atherosclerotic heart disease of native coronary artery without angina pectoris; F41.1 Generalized anxiety disorder; G47.00 Insomnia, unspecified; Z91.81 History of falling; Z95.5 Presence of coronary angioplasty implant and graft; Z88.7 Allergy status to serum and vaccine; Z87.891 Personal history of nicotine dependence; Z83.3 Family history of diabetes mellitus; Z80.0 Family history of malignant neoplasm of digestive organs; Z80.8 Family history of malignant neoplasm of other organs or systems; Z80.51 Family history of malignant neoplasm of kidney
CPT/HCPCS: 36415; 70450; 80061; 97150; 97161; 97166; 97530; 97116-GP; G8978-CJ; G8979-CI; G8987; G8988